=== PATIENT | female | born 1950 | race Caucasian/White ===

== ENCOUNTER 2019-07-11 15:03 | Emergency (ER) | payer MEDICARE ==
[~2019-07-11] VITALS: Ht 167.6 cm; Wt 101.8 kg
[2019-07-11 15:09] VITALS: Ht 167.6 cm; Wt 101.8 kg
[2019-07-11] MEDS ORDERED: ALBUTEROL SULF8.5 GM INH (15:13)
[2019-07-11] MEDS ORDERED: NORVASC5 MG PO (15:14)
[2019-07-11] MEDS ORDERED: THEREMS-M1 TAB PO (15:14)
[2019-07-11] MEDS ORDERED: GUAIFENESI100 MG/5 M PO (15:15)
[2019-07-11] MEDS ORDERED: NEURONTIN600 MG PO (15:15)
[2019-07-11] MEDS ORDERED: COLCRYS0.6 MG PO (15:15)
[2019-07-11] MEDS ORDERED: XALATAN 0.0052.5 ML LEFT EYE (15:16)
[2019-07-11] MEDS ORDERED: HYDROCODON-ACE1 EA10 PO (15:16)
[2019-07-11] MEDS ORDERED: IPRAT-ALBUT 0.5-3 ML UPD (15:16)
[2019-07-11] MEDS ORDERED: GLUCOPHAGE500 MG PO (15:17)
[2019-07-11] MEDS ORDERED: LOPRESSOR25 MG PO (15:17)
[2019-07-11] MEDS ORDERED: ATIVAN0.5 MG PO (15:17)
[2019-07-11] MEDS ORDERED: MIRALAX17 GM PO (15:18)
[2019-07-11] MEDS ORDERED: OXYBUTYNIN CHLOR5 MG PO (15:18)
[2019-07-11] MEDS ORDERED: OMEPRAZOLE40 MG PO (15:18)
[2019-07-11] MEDS ORDERED: TRAZODONE HCL150 MG PO (15:19)
[2019-07-11] MEDS ORDERED: PRAVACHOL20 MG (15:19)
[2019-07-11] MEDS ORDERED: EFFEXOR XR150 MG PO (15:20)
[2019-07-11 18:04] LABS: APPEARANCE CLEAR (CLEAR); BILIRUBIN NEGATIVE (NEGATIVE); COLOR YELLOW (YELLOW); GLUCOSE NEGATIVE (NEGATIVE); KETONE NEGATIVE (NEGATIVE); NITRITE NEGATIVE (NEGATIVE); PROTEIN NEGATIVE (NEGATIVE); SPECIFIC GRAVITY 1.005 (1.005-1.020); UROBILINOGEN NORMAL (NORMAL)
[2019-07-11] MEDS ORDERED: CLARITIN 10 MG10 MG PO (18:35)
[2019-07-11] MEDS ORDERED: ZPAK PO (18:35)
[2019-07-11] MEDS ORDERED: ROBITUSSIN DM 110 ML PO (18:35)
[2019-07-11 18:57] VITALS: BP 184/68
[2019-07-12] MEDS ORDERED: ATARAX 25 MG TA25 MG PO (01:26)
== END 2019-07-11 18:57 | disposition home or self-care (01) ==
LOC: D.ER 15:03
PROVIDERS: Family Medicine
DX: J01.90 Acute sinusitis, unspecified (principal)

== ENCOUNTER 2019-07-11 23:15 | Emergency (ER) | payer MEDICARE ==
[~2019-07-11] VITALS: Ht 167.6 cm; Wt 111.8 kg
[~2019-07-11 23:15] MED LIST: ALBUTEROL SULF8.5 GM INH; ATIVAN0.5 MG PO; CLARITIN 10 MG10 MG PO; COLCRYS0.6 MG PO; EFFEXOR XR150 MG PO; GLUCOPHAGE500 MG PO; GUAIFENESI100 MG/5 M PO; HYDROCODON-ACE1 EA10 PO; IPRAT-ALBUT 0.5-3 ML UPD; LOPRESSOR25 MG PO; MIRALAX17 GM PO; NEURONTIN600 MG PO; NORVASC5 MG PO; OMEPRAZOLE40 MG PO; OXYBUTYNIN CHLOR5 MG PO; PRAVACHOL20 MG; ROBITUSSIN DM 110 ML PO; THEREMS-M1 TAB PO; TRAZODONE HCL150 MG PO; XALATAN 0.0052.5 ML LEFT EYE; ZPAK PO
[2019-07-11 23:36] VITALS: Ht 167.6 cm; Wt 111.8 kg
[2019-07-12] MEDS ORDERED: ATARAX 25 MG TA25 MG PO (01:26)
[2019-07-12 01:46] VITALS: BP 177/98
== END 2019-07-12 01:46 | disposition home or self-care (01) ==
LOC: D.ER 23:15
DX: J06.9 Acute upper respiratory infection, unspecified (principal); F41.9 Anxiety disorder, unspecified; I10 Essential (primary) hypertension; E11.9 Type 2 diabetes mellitus without complications

== ENCOUNTER 2019-09-08 14:36 | Inpatient (IN) | payer MEDICARE ==
[~2019-09-08] VITALS: Ht 167.6 cm; Wt 105.6 kg
[~2019-09-08 14:36] MED LIST changes: +ATARAX 25 MG TA25 MG PO
[2019-09-08 16:27] LABS: BASOPHILS 0.8 % (0-2); EOSINOPHILS 1.3 % (0-7); HEMATOCRIT 40.3 % (36.0-48.0); HEMOGLOBIN 13.9 g/dL (12-16); IMMATURE GRANULOCYTES 0.2 % (0-5); LYMPHOCYTES 33.1 % (15-50); MCH 33.1 pg (26.0-34.0); MCHC 34.5 g/dL (31.0-37.0); MEAN PLATELET VOLUME 10.9 fL (7.4-10.4); MONOCYTES 9.1 % (2-11); NEUTROPHILS 55.5 % (40-80); PLATELET COUNT 273 10x3/uL (130-400); RDW 13.6 % (11.5-14.5); WBC 6.3 10x3/uL (4.8-10.8)
[2019-09-08 17:17] LABS: ALBUMIN 3.8 g/dL (3.4-5.0); ANION GAP 15.1 mmol/L (8-16); BILIRUBIN - TOTAL 0.95 mg/dL (0.2-1.3); CALCIUM 8.6 mg/dL (8.5-10.1); CARBON DIOXIDE 24.9 mmol/L (21.0-32.0); CHOL - HDL RATIO 4.5 ratio (2.3-4.1); CREATININE - SERUM 1.3 mg/dL (0.6-1.3); PROTEIN - SERUM 7.9 g/dL (6.4-8.2); THYROID STIMULATING HORMONE 1.46 uIU/mL (0.36-3.74)
[2019-09-08 17:47] LABS: APPEARANCE CLEAR (CLEAR); COLOR YELLOW (YELLOW); GLUCOSE NEGATIVE (NEGATIVE); KETONE NEGATIVE (NEGATIVE); NITRITE NEGATIVE (NEGATIVE); PROTEIN NEGATIVE (NEGATIVE); UROBILINOGEN NORMAL (NORMAL)
[2019-09-08 17:48] LABS: BILIRUBIN NEGATIVE (NEGATIVE)
[2019-09-08 23:24] VITALS: BP 112/70
--- NOTE | 2019-09-09 00:11 | NUR ---
RECEIVED IN HALLWAY. PATIENT STATES THAT SHE HAS BEEN HAVING HALLUCINATIONS AND HAD SEEN SOME PEOPLE IN HER ROOM AND QUESTIONED IF THEY WERE REAL . THIS NURSE STATED THAT THEY WERE NOT REAL AND THAT SHE WAS SAFE HERE WITH US. PATIENT THANKED THIS NURSE AND RETURNED TO HER ROOM AND WENT TO BED. RESTING IN BED WITH EYES CLOSED AT THIS TIME. CONTINUE PLAN OF CARE
[2019-09-09 06:23] VITALS: BP 112/70
[2019-09-09 07:13] LABS: RAPID PLASMA REAGIN Non Reactive (Non Reactive)
[2019-09-09 09:00] VITALS: BP 133/67
--- NOTE | 2019-09-09 10:00 | NUR ---
PATIENT IS AWAKE AND ALERT TO PERSON AND SITUAtION. CALM AND COOPERATIVE WITH ASSESSMENT AND CARE. DENIES ANY HALLUCINATIONS TODAY. ADMINISTER PRESCRIBED MEDICATIONS. COMPLIANT WITH MEDICATIONS. REDIRECT AND REORIENT NEEDED. CONTINUE PLAN OF CARE.
--- NOTE | 2019-09-09 11:42 | NUR ---
ATIVAN 0.5 MG PO GIVEN FOR NERVES PER PATIENT REQUEST.
--- NOTE | 2019-09-09 11:54 | HP ---
PATIENT: JOEY COUCH MEDICAL RECORD: [id number] ACCOUNT: [id number] LOCATION:[id number] : 49 ADMISSION DATE: 09/08/19 PCP: WILLI MONTERO HISTORY AND PHYSICAL EXAMINATION IDENTIFYING DATA: The patient is 68 years old and she is admitted to the hospital on a voluntary basis. CHIEF COMPLAINT: Hallucinations. HISTORY OF PRESENT ILLNESS: The patient comes to us from home. She lives alone and she has been having hallucinations. They are very vivid, some of them are quite frightening and she has some suspicion that they are not quite real, but nevertheless the intensity is so strong and they are so frightening that she simply cannot resist being afraid. This has been going on for several weeks. There is no history of this prior. She has no history of mental illness. She denies any kind of history of drug or alcohol abuse. She has never been diagnosed with dementia. She is distressed, but is generally denying neurovegetative depressive symptoms. PAST MEDICAL HISTORY: Significant for urinary tract infection. She has had a previous stroke. She does have diabetes and hypertension. PAST PSYCHIATRIC HISTORY: Significant for anxiety and depression, but nothing that ever required her to be hospitalized and it has always been managed by her primary care physician. FAMILY HISTORY: Significant for diabetes and hypertension. ALLERGIES: No known drug allergies. CURRENT MEDICATIONS: Include albuterol, Norvasc, Neurontin, Robitussin, Ativan, Glucophage, Lopressor, Ditropan, MiraLax, Pravachol, Desyrel, and Effexor. SOCIAL HISTORY: The patient is . She was to the same man for 38 years. She has 3 adult children. 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 She has no history of drug or alcohol abuse. She does have an adult daughter who lives nearby. MENTAL STATUS EXAMINATION: The patient is awake, alert, and oriented to person and place as well as the situation. She is only mildly wrong about the date. She is several days off on the day of the month. Her mood is depressed. Her affect is generally appropriate. Thought processes are circumstantial. Memory, concentration, and abstraction abilities are mildly impaired and she denies any intent to harm herself or others as well as overt psychotic symptoms. ASSESSMENT: AXIS I: Delirium secondary to polypharmacy. Rule out major depression. Rule out dementia, vascular type. AXIS II: Deferred. AXIS III: Hypertension, diabetes, arthritis, status post stroke. AXIS IV: Moderate. AXIS V: Global assessment of functioning is 40. PLAN: At this time, the patient is admitted to the hospital secondary to very HISTORY AND PHYSICAL [id number] JOEY COUCH A vivid and distressing hallucinations. It is my opinion at this time that it is related to polypharmacy. I have discontinued many of her medications, some of which I will either have to substitute or add back her formulary. I do believe that she will clear without me doing anything other than stopping these medicines, but I am standing by to start her on other psychoactive medications as indicated, based upon how things unfold during this hospitalization. I am reserving judgment on an affective disorder as well as a dementing illness. At this point, I am leaning toward saying no on a dementia, or if it is present, it is mild and leaning toward saying no on a major affective disorder or if it is present, it is mild. TRANSINT:[id number] Voice Confirmation ID: [id number] DOCUMENT ID: [id number] MARGAUX REY MD at 1154 CC: [id number] DICTATION DATE: 09/08/19 1638 AIR TWISTER WINDER: 09/08/19 1755 ADM IN [facility] [address] [id number]
[2019-09-09 15:23] VITALS: Ht 167.6 cm; Wt 105.6 kg
--- NOTE | 2019-09-09 19:45 | NUR ---
RECEIVED IN DAYROOM. SITTING IN A CHAIR WITH PEERS AT HER SIDE. SOCIALIZING AT TIMES. CALM AND COOPERATIVE WITH CARE AND ASSESSMENT. NO SIGNS OF HALLUCINATIONS OR PARANOIA. REDIRECT AND REORIENT NEEDED. CONTINUES TO SIT CALMLY IN DAYROOM. CONTINUE PLAN OF CARE.
[2019-09-09 22:56] VITALS: BP 152/59
[2019-09-10 08:46] VITALS: BP 121/62
--- NOTE | 2019-09-10 09:00 | NUR ---
PATIENT IS AWAKE AND ALERT X 3. CALM AND COOPERATIVE WITH CARE AND ASSESSMENT. SOCIALIZES WITH PEERS. DENIES ANY HALLUCINATIONS OR PARANOIA. REDIRECT AND REORIENT NEEDED. CONTINUE PLAQN OF CARE.
--- NOTE | 2019-09-10 12:24 | PN ---
PATIENT:JOEY COUCH MEDICAL RECORD: [id number] LOCATION:[facility] ADMISSION DATE: 09/08/19 PROGRESS NOTE DATE OF SERVICE: 09/09/2019 SUBJECTIVE: The patient's case was discussed with staff. She has no new complaint. OBJECTIVE: The patient denies intent to harm herself or others. She still is having some hallucinations. ASSESSMENT: 1. Delirium. 2. Rule out major depression. 3. Rule out vascular dementia. PLAN: At this time, I am not going to start the patient on an antipsychotic. I do not think I have had enough time to see if the hallucinations are related to whatever medicines or combinations of medicines she was taking prior to coming into the hospital. They have improved since being admitted, but they have not gone away. Last night, she had some visual hallucinations, but she was able to recognize or least partially recognize that what she was seeing was not real. She did ask staff that was working last night for a confirmation that what she was seeing was not real. I think that is an improvement and I continue to suspect that the hallucinations are in large part related to polypharmacy that was of course unintentional on her part. TRANSINT:[id number] Voice Confirmation ID: [id number] DOCUMENT ID: [id number] MARGAUX REY MD at 1224 CC: [id number] DICTATION DATE: 09/09/19 1203 RESPIRATORY SUPPORT TECHNICIAN: 09/09/19 1210 [place] [address]
[2019-09-10 17:25] LABS: ANION GAP 14.4 mmol/L (8-16); CALCIUM 8.4 mg/dL (8.5-10.1); CARBON DIOXIDE 26.5 mmol/L (21.0-32.0); CREATININE - SERUM 1.3 mg/dL (0.6-1.3)
[2019-09-10 17:28] LABS: POTASSIUM - SERUM 2.9 mmol/L (3.5-5.1)
[2019-09-10 20:11] VITALS: BP 145/63
--- NOTE | 2019-09-11 02:35 | NUR ---
RECEIVED IN DAYROOM. WATCHING TV. CALM AND COOPERATIVE WITH CARE AND ASSESSMENT. NO SIGNS OF HALLUCINATIONS. NO PARANOID BEHAVIOR. REDIRECT AND REORIENT NEEDED. RESTING IN BED WITH EYES CLOSED AT THIS TIME. CONTINUE PLAN OF CARE.
--- NOTE | 2019-09-11 10:28 | NUR ---
NUTRITION F/U PT TOLERATING DIABETIC DIET WITH 75 TO 100% INTAKE RECENT MEALS. BM RECORDED 09/10/19. NO NEW WT AVAILABLE AT THIS TIME. WILL CONTINUE TO PROVIDE DIET, MONITOR PO INTAKE AND WT. RD FOLLOWING
--- NOTE | 2019-09-11 13:35 | NUR ---
PT. ALERT, CALM, COOPERATIVE, LIKES TO HELP WITH VARIOUS TASKS SUCH WIPING THE TABLES AFTER MEALS. COMPLIANT WITH MEDS. NO HALLUCINATIONS REPORTED. CONT POC DIRECTED.
[2019-09-11 14:52] VITALS: BP 161/75
--- NOTE | 2019-09-11 15:09 | PN ---
PATIENT:JOEY COUCH MEDICAL RECORD: [id number] LOCATION:[facility] ADMISSION DATE: 09/08/19 PROGRESS NOTE DATE OF SERVICE: 09/10/2019 SUBJECTIVE: The patient's case was discussed with staff. She has no new complaint. OBJECTIVE: The patient is not having any more hallucinations. She is fully oriented. She says she is quite anxious though and wants me to do something to address this. She wants Xanax, but I am not going to give her that. I am going to start her on BuSpar. ASSESSMENT: Delirium, resolving. PLAN: The patient will be given BuSpar at a dose of 5 mg twice daily. I will increase the dose tomorrow and if she continues to improve, we will likely discharge her. I am convinced that polypharmacy was the culprit in producing the mental status change and hallucinations that brought her to the hospital. I think part of that may well have been unintentional. She was taking a very long list of medicines over 20 and was taking medicines multiple times a day. I can see it being very easy for her to overtake or mistake 1 or 2 of them and then become more confused and completely have her schedule and medicines mixed up. The patient in my view is not a substance abuser and I do not see evidence of this. TRANSINT:[id number] Voice Confirmation ID: [id number] DOCUMENT ID: [id number] MARGAUX REY MD at 1509 CC: [id number] DICTATION DATE: 09/10/19 1612 CHILD STUDY TEAM DIRECTOR: 09/10/19 2346 ADM IN [id number] [place] [address]
[2019-09-11] MEDS ORDERED: BUSPAR5 MG PO (15:55)
[2019-09-11] MEDS ORDERED: VITAMIN D250000 UNIT PO (15:55)
--- NOTE | 2019-09-11 16:10 | NUR ---
PT BECAME UPSET WHEN TOLD SHE WOULD BE DISCHARGING 09/12/19 INSTEAD OF 09/11/19. PT ASKED TO CALL FAMILY [facility]ERS STAFF CALLED 2X AND LEFT VOICEMAILS. FAMILT DID NOT RESPOND. WHEN STAFF SPEAKS WITH FAMILY WILL SET UP PCIK UP TIME.
--- NOTE | 2019-09-11 17:40 | NUR ---
PT IS SPEAKING WITH FAMILY. 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 PT BECAME UPSET AND STATED "WE KEEP CHANGING THINGS ON HER AND IT MAKES HER SO DARN MAD." MHT TOOK A PHONE NUMBER FOR FAMILY.
[2019-09-11 20:12] VITALS: BP 152/59
--- NOTE | 2019-09-11 23:18 | NUR ---
B.) PT IS ALERT AND ORIENTED TO SELF AND SITUATION ONLY. SHE IS ABLE TO AMBULATE ON HER OWN WITHOUT ASSISTANCE. SHE IS PLEASANT WITH STAFF AND PEERS. I.) PROVIDE PM MEDICATIONS R.) COMPLIANT WITH ALL MEDICATIONS. P.) CONTINUE PLAN OF CARE
--- NOTE | 2019-09-12 00:09 | NUR ---
SPOKE WITH SRINI HER DAUGHTER. SHE WAS CONCERNED ABOUT IF SHE WOULD BE ABLE TO LIVE ON HER OWN. SHE REQUESTED THAT SHE SPEAK WITH ALEJANDRO CRESPO BEFORE DISCHARGE. INFORMED HER THAT SHE HAS DENIED ALL HALLUCINATIONS TO STAFF.
--- NOTE | 2019-09-12 09:24 | NUR ---
SW SPOKE TO PT'S DIL AND INFORMED OF PT DISCHARGING. PT WILL BE PICKED UP TODAY. FOLLOW UP APPOINTMENT WITH DR MONTERO WAS MADE FOR 09/30. PT'S DIL VOICED UNDERSTANDING.
--- NOTE | 2019-09-12 10:37 | NUR ---
B) The patient is awake and alert, she is pleasant. She has not shown any hallucinations or paranoia. I) Provide prescribed meds. Fax d/c orders and med list to her PCP. R) The patient is packed and ready to d/c with her daughter today. P) Continue D/C plan.
--- NOTE | 2019-09-12 12:00 | NUR ---
The patient's daughter came to pick her up, provided the patient with written d/c papers and an appointment. The patient is assisted off of the unit by staff and she is now d/c'd. All the patient's belongings are sent with her.
--- NOTE | 2019-09-12 15:56 | PN ---
PATIENT:JOEY COUCH MEDICAL RECORD: [id number] LOCATION:[facility] ADMISSION DATE: 09/08/19 PROGRESS NOTE DATE OF SERVICE: 09/11/2019 SUBJECTIVE: The patient's case was discussed with staff. She has no new complaint. OBJECTIVE: The patient is in good behavioral control with poor insight about her condition. She does tolerate her medicines well. ASSESSMENT: Delirium. PLAN: The patient is requesting discharge. She will be discharged this afternoon if possible and perhaps tomorrow. Followup will be with her primary care physician. TRANSINT:[id number] Voice Confirmation ID: [id number] DOCUMENT ID: [id number] MARGAUX REY MD at 1556 CC: [id number] DICTATION DATE: 09/11/19 1553 POWERHOUSE HELPER: 09/11/19 1731 DIS IN 09/12/[id number] [place] [address]
--- NOTE | 2019-09-27 11:48 | DS ---
PATIENT:JOEY COUCH :48 MEDICAL RECORD: [id number] DISCHARGE SUMMARY ADMISSION DATE: 09/08/19 DISCHARGE DATE: 09/12/19 IDENTIFYING DATA: The patient is 68 years old and she was admitted to the hospital on a voluntary basis because of hallucinations. The patient comes to us from home. She has been having active hallucinations that are vivid, some of them were quite frightening and appear quite real to her. The intensity is strong and they have been frightening her. This has been going on for several weeks. There is no prior history of psychotic symptoms and there is no prior history of mental illness. She has no history of drug or alcohol abuse. She has not been diagnosed with dementia. She is distressed and probably somewhat depressed, but denies neurovegetative depressive symptoms. HOSPITAL COURSE: The patient was admitted to the hospital and fully evaluated from both a medical, psychological, and social standpoint. She was treated with mood stabilizing medications, but her primary problem was thought to be polypharmacy. A number of medications were discontinued and the other medicines were reduced in dose. She showed a rapid disappearance of her hallucinations. It was felt that she had some depressive symptoms and she was started on antidepressant medications. DISCHARGE DIAGNOSES: AXIS I: Delirium secondary to polypharmacy. Major depression, mild, recurrent, without psychotic features. AXIS II: None. AXIS III: Hypertension, diabetes, arthritis, status post stroke. AXIS IV: Moderate. AXIS V: Global assessment of functioning is 45. PLAN: At the time of discharge, the patient was in good behavioral control, had no evidence of acute or direct dangerousness and certainly had no evidence of overt psychotic symptoms. She does not require psychiatric followup and follow up will be with her primary care physician. TRANSINT:[id number] Voice Confirmation ID: [id number] DOCUMENT ID: [id number] MARGAUX REY MD at 1148 CC: [id number] DICTATION DATE: 09/26/19 1614 FIELD ADMINISTRATOR: 09/27/19 0834 DIS IN 09/12/19 [facility] [address] [id number]
== END 2019-09-12 12:00 | disposition home or self-care (01) | DRG 897 ==
LOC: D.PSYCH 14:36
PROVIDERS: Family Medicine; ADMIT Psychiatry & Neurology Psychiatry; ATTEND Psychiatry & Neurology Psychiatry
DX: F19.921 Other psychoactive substance use, unspecified with intoxication with delirium (principal); I10 Essential (primary) hypertension; M19.90 Unspecified osteoarthritis, unspecified site; E55.9 Vitamin D deficiency, unspecified; K21.9 Gastro-esophageal reflux disease without esophagitis; F41.8 Other specified anxiety disorders; E87.6 Hypokalemia; E78.5 Hyperlipidemia, unspecified; E11.39 Type 2 diabetes mellitus with other diabetic ophthalmic complication; H42 Glaucoma in diseases classified elsewhere; R09.02 Hypoxemia; K59.00 Constipation, unspecified